=== PATIENT | female | born 1980 | race Two or more races ===

== ENCOUNTER 2024-06-15 19:00 | Emergency (ER) | payer OTHER ==
[~2024-06-15] VITALS: Ht 154.9 cm; Wt 97.5 kg
[~2024-06-15 19:00] MED LIST: LEVA0.31 HHN
[2024-06-15 19:20] VITALS: BP 139/91; TEMP 98.5; O2SAT 99
== END 2024-06-15 19:47 | disposition left against medical advice (07) ==
LOC: ER 19:00
DX: J45.909 Unspecified asthma, uncomplicated (principal); Z53.21 Procedure and treatment not carried out due to patient leaving prior to being seen by health care provider